=== PATIENT | female | born 1980 | race Two or more races ===

== ENCOUNTER 2024-09-21 13:30 | Outpatient (RCR) | payer MEDICAID, SELFPAY | END 2024-10-18 23:59 | disposition home or self-care (01) | LOC: SCTC 13:30 | PROVIDERS: PCP Physician Assistant; Referring Provider Physician Assistant; Visit Provider Nurse Practitioner Family | DX: D50.0 Iron deficiency anemia secondary to blood loss (chronic) (principal); N92.0 Excessive and frequent menstruation with regular cycle; K76.0 Fatty (change of) liver, not elsewhere classified | CPT/HCPCS: 99212; G0463 ==

== ENCOUNTER → 2024-09-22 | Outpatient (CLI) | payer MEDICAID, SELFPAY ==
--- NOTE | 2024-09-22 12:00 | XR_ITS ---
Examination: Abdomen sonogram, Limited Date and time of exam: September 22, 2024 at 1239 hours INDICATIONS: Elevated liver function tests on laboratory examination performed 4 days ago Technique: Real-time eastman scale transabdominal sonographic images of the upper abdomen obtained. Findings: Normal gallbladder Normal common bile duct 0.4 cm Pancreatic head 2.8 cm Liver 14.9 cm fatty infiltration smooth contour Normal hepatopedal portal venous flow Patent IVC IMPRESSION: Normal gallbladder Fatty liver
== END | disposition home or self-care (01) ==
LOC: CDIM 11:42
PROVIDERS: Referring Provider Nurse Practitioner Family; Visit Provider Nurse Practitioner Family
DX: K76.0 Fatty (change of) liver, not elsewhere classified (principal)
CPT/HCPCS: 76705

== ENCOUNTER → 2024-10-25 | Outpatient (CLI) | payer MEDICAID, SELFPAY ==
[2024-10-24 15:00] LABS: HCG Qualitative,Urine Negative
--- NOTE | 2024-10-25 14:30 | XR_ITS ---
Examination: CT abdomen with intravenous contrast CT pelvis with intravenous contrast 2-D coronal reconstructions 2-D sagittal reconstructions Date and time of exam:October 25, 2024 1432 hours Comparison liver sonography September 22, 2024 Indications. And efficiency anemia 2 years elevated liver enzymes 2 years CTDI: vol (mGy) 10.3 DLP: (mGycm) 563 Technique: Multiple axial sections of the abdomen and pelvis have been obtained. 64 slice high-resolution scanner used. 3 mm axial sections have been obtained, post intravenous injection 60 cc [id number] 2-D sagittal, coronal reconstructions obtained. Low dose protocols were performed. One or more of the following dose reduction techniques were used; automated exposure control, adjustment of the mA and/or KV according to patient size, use of iterative reconstruction technique. Findings: No focal liver or splenic lesions No gallstones No pancreatic mass No right hydronephrosis Left pelvic kidney with 3 mm calculus No hydronephrosis or ureteral calculi No bowel obstruction Colonic diverticulosis 10 mm uterine fundal area of fibroid degeneration Bladder intact IMPRESSION: Left pelvic kidney with 3 mm nonobstructing calculus No bowel obstruction Normal appendix Small uterine fundal mass
== END | disposition home or self-care (01) ==
PROVIDERS: PCP Physician Assistant; Referring Provider Nurse Practitioner Family; Visit Provider Nurse Practitioner Family
DX: N20.0 Calculus of kidney (principal); R19.09 Other intra-abdominal and pelvic swelling, mass and lump; Z32.00 Encounter for pregnancy test, result unknown
CPT/HCPCS: 74177; 81025; A4649; Q9967

== ENCOUNTER 2024-11-02 11:21 | Outpatient (RCR) | payer MEDICAID, SELFPAY | END 2024-11-18 23:59 | disposition home or self-care (01) | LOC: SCTC 11:21 | PROVIDERS: PCP Physician Assistant; Referring Provider Physician Assistant; Visit Provider Nurse Practitioner Family | DX: D50.9 Iron deficiency anemia, unspecified (principal); N92.0 Excessive and frequent menstruation with regular cycle; D25.9 Leiomyoma of uterus, unspecified; N20.0 Calculus of kidney | CPT/HCPCS: 99212; G0463 ==

== ENCOUNTER → 2024-12-11 | Outpatient (CLI) | payer MEDICAID, SELFPAY ==
--- NOTE | 2024-12-11 13:30 | XR_ITS ---
Examination: Screening digital mammography, bilateral Computer aided detection 3-D breast Tomosynthesis, bilateral Date and time of exam: December 11, 2024 1338 hours Compared to mammograms dating to April 12, 2020 Indication: Screening Technique: Nonmagnified MLO, CC views of the breasts to been obtained, reconstructed from 3-D Tomosynthesis images. R2 computer aided detection program utilized for evaluation of suspicious masses and/or abnormal calcifications. 3-D Tomosynthesis images obtained. Findings: The breasts are heterogeneously dense, which may obscure small masses Breast biopsy marker 6:00 position right breast with associated nodule No interval suspicious masses Impression: BI-RADS Category 0: Incomplete: Need additional imaging evaluation Recommend bilateral breast sonography follow-up to document stability 7:00 nodule left breast, described on left breast sonogram January 28, 2024 and biopsied April 12, 2024
== END | disposition home or self-care (01) ==
LOC: CDIM 13:10
PROVIDERS: Referring Provider Family Medicine; Visit Provider Family Medicine
DX: Z12.31 Encounter for screening mammogram for malignant neoplasm of breast (principal); R92.333 Mammographic heterogeneous density, bilateral breasts; N63.24 Unspecified lump in the left breast, lower inner quadrant
CPT/HCPCS: 77063; 77067

== ENCOUNTER 2025-01-24 12:59 | Outpatient (RCR) | payer MEDICAID, SELFPAY | END 2025-02-18 23:59 | disposition home or self-care (01) | LOC: SCTC 12:59 | PROVIDERS: PCP Physician Assistant; Referring Provider Nurse Practitioner Family; Visit Provider Nurse Practitioner Family | DX: D50.9 Iron deficiency anemia, unspecified (principal); N92.0 Excessive and frequent menstruation with regular cycle; R74.8 Abnormal levels of other serum enzymes; D25.9 Leiomyoma of uterus, unspecified | CPT/HCPCS: 99212; G0463 ==

== ENCOUNTER → 2025-03-30 | Outpatient (CLI) | payer MEDICAID, SELFPAY ==
[2025-03-29 13:31] LABS: Basophils # (Auto) 0.1 Thou/mm3 (0.0-0.2); Basophils % (Auto) 1 % (0-2.5); Eosinophils # (Auto) 0.1 Thou/mm3 (0.0-0.5); Eosinophils % (Auto) 1 % (0-10); HCG,Qualitative Serum Negative; Hematocrit 40.0 % (36.0-46.0); Hemoglobin 13.4 g/dL (12.0-16.0); Immature Granulocytes Auto 0.02 Thou/mm3 (0.00-0.00); Lymphocytes # (Auto) 1.6 Thou/mm3 (1.0-4.8); Lymphocytes % (Auto) 27 % (10-50); Mean Corpuscular HGB Conc 33.5 g/dl (31.0-37.0); Mean Corpuscular Hemoglobin 30.3 pg (25.0-35.0); Mean Corpuscular Volume 91 fL (80-100); Monocytes # (Auto) 0.7 Thou/mm3 (0.0-0.8); Monocytes % (Auto) 12 % (0-12); Neutrophils # (Auto) 3.4 Thou/mm3 (1.8-7.7); Neutrophils % (Auto) 59 % (37-80); Nucleated Red Blood Cell # 0.00 Thou/mm3 (0.00-0.00); Nucleated Red Blood Cell % 0 /100 WBC (0); Platelet Count 222 Thou/mm3 (140-440); RDW Standard Deviation 42.2 fL (36.4-46.3); Red Blood Count 4.42 Miln/mm3 (4.00-5.20); White Blood Count 5.8 Thou/mm3 (3.6-11.0)
[2025-03-29 13:34] LABS: INR 1.0 (0.9-1.3); Partial Thromboplastin Time 26.7 Seconds (22.0-36.0); Prothrombin Time 10.9 Seconds (9.0-12.2)
--- NOTE | 2025-03-30 09:30 | XR_ITS ---
Examinations: Ultrasound-guided percutaneous breast biopsy, left breast 7:00 nodule Left breast sonography limited INDICATIONS: Left breast sonogram January 29, 2025 BI-RADS 4 suspicious nodule 7 o'clock position left breast. Exam date and time: March 30, 2025, 1028 hours. Informed consent provided. Technique: A timeout was completed verifying correct patient, procedure, site, positioning, and special equipment if applicable Informed consent provided. The patient was placed in a supine position for the breast biopsy. Sonographic images of the breast were performed for localization of the suspicious nodule The patient's breast was prepped and draped in sterile fashion. Maximum sterile barrier technique, hand hygiene, ultrasound sterile technique 1% lidocaine was used to anesthetize the skin and breast adjacent to the suspicious nodule. Utilizing ultrasonographic guidance, 8 core biopsies were obtained of the suspicious nodule utilizing an 18-gauge BioPince needle. The specimens appears satisfactory. US guided breast biopsy marker placement. Estimated blood loss 3 cc. The patient tolerated the procedure well and there were no complications. Impression: Successful ultrasound-guided percutaneous breast biopsy, left breast 7:00 nodule. Ultrasound guided breast biopsy marker placement.
== END | disposition home or self-care (01) ==
LOC: SDIM 10:02
PROVIDERS: Radiology Diagnostic Radiology; PCP Family Medicine; Referring Provider Family Medicine; Visit Provider Family Medicine
DX: N63.24 Unspecified lump in the left breast, lower inner quadrant (principal); D24.2 Benign neoplasm of left breast
CPT/HCPCS: 19083; 36415; 84703; 85025; 85610; 85730; A4648

== ENCOUNTER → 2025-04-07 | Outpatient (CLI) | payer MEDICAID, SELFPAY ==
[2025-04-06 11:05] LABS: HCG Qualitative,Urine Negative
--- NOTE | 2025-04-07 12:00 | XR_ITS ---
Examination: MRI abdomen with intravenous contrast. MRI abdomen without intravenous contrast. Date and time of exam: April 07, 2025, out 12 INDICATIONS: Iron deficiency anemia diagnosis 1.5 years Technique: Multiple axial, sagittal and coronal sections of the abdomen obtained. Transverse images, TR 6020, TE 107. T1 weighted transverse images, TR 582, TE 9.5. T2-weighted sagittal images, TR 4000, TE 105. T2-weighted sagittal images, TR 4000, TE 5. Coronal images, TR 4210, TE 107. Axial and coronal images are obtained post 19 cc intravenous injection, gadolinium. Findings: Negative for hepatomegaly No focal liver lesion or intrahepatic biliary tract dilatation Contracted gallbladder no gallstones Normal common hepatic common bile duct No pancreatic mass or pancreatic edema Pancreatic duct is not dilated Spleen is not enlarged. No ascites. Partial visualization pelvic kidney No hydronephrosis Mild abdominal lymphadenopathy IMPRESSION: Negative for hepatosplenomegaly No focal liver lesions Normal gallbladder Normal common hepatic common bile duct
== END | disposition home or self-care (01) ==
LOC: SMRI 04-12 09:51
PROVIDERS: PCP Family Medicine; Referring Provider Nurse Practitioner Family; Visit Provider Nurse Practitioner Family
DX: D50.8 Other iron deficiency anemias (principal); Z32.00 Encounter for pregnancy test, result unknown
CPT/HCPCS: 74183; 81025; A9577